=== PATIENT | male | born 2000 | race Caucasian/White ===

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

== ENCOUNTER 2019-04-04 23:39 | Emergency (ER) | payer OTHER ==
[2019-04-05] MEDS ORDERED: Bupivacaine 0.5% PF 10 ML SDV VIAL INJ ONE (00:09)
[2019-04-05] MEDS ORDERED: Bupivacaine 0.5%* 50 ML MDV VIAL INJ ONE (00:09)
[2019-04-05] MEDS ORDERED: Lidocaine 1% INJ* 10 MG/ML 30 ML SDV INJ ONE (00:10)
--- NOTE | 2019-04-05 00:11 | ED ---
Throat Pain/Nasal Congestion - HPI Summary HPI Summary: 18-year-old male with no significant past medical history presents to the emergency department with chief complaint of a dental abscess of the upper left gums. Patient states he began having this abscess approximately one week ago and prior to arrival he "popped a knife and it and drained that fucker". Patient currently endorses 7/10 aching/pressure which is made worse with eating. Patient denies trouble breathing, trouble swallowing, fever, rash. Family history and social history noncontributory. Patient endorses smoking marijuana prior to arrival. Patient states he has a dentist appointment tomorrow but could not wait because of the pain. - History of Current Complaint Chief Complaint: EDDentalPain Time Seen by Provider: 04/05/19 00:03 Hx Obtained From: Patient Onset/Duration: Gradual Onset Severity: Severe Associated Signs And Symptoms: Negative: Dysphagia, FB Sensation, Drooling, Wheezing, Hoarseness, Sinus Discomfort, Nasal Discharge Cough: None - Allergies/Home Medications Allergies/Adverse Reactions: Allergies Allergy/AdvReac Type Severity Reaction Status Date / Time No Known Allergies Allergy Verified 03/09/14 16:14 PMH/Surg Hx/FS Hx/Imm Hx Endocrine/Hematology History: Denies: Hx Diabetes Cardiovascular History: Denies: Hx Coronary Artery Disease Sensory History: Reports: Hx Contacts or Glasses Denies: Hx Eye Injury, Hx Eye Prosthesis, Hx Glaucoma, Hx Legally Blind, Hx Macular Degeneration, Hx Vision Problem, Hx Deafness, Hx Hearing Aid, Hx Hearing Problem, Other Sensory Impairments Opthamlomology History: Reports: Hx Contacts or Glasses Denies: Hx Eye Injury, Hx Eye Prosthesis, Hx Glaucoma, Hx Legally Blind, Hx Macular Degeneration, Hx Vision Problem, Other Sensory Impairments Neurological History: Reports: Hx Headaches Psychiatric History: Reports: Hx Anxiety, Hx Attention Deficit Hyperactivity Disorder, Hx Depression, Hx Inpatient Treatment, Hx Community Mental Health Tx, Hx Bipolar Disorder, Hx of Violent Episodes Against Others, Other Psychiatric Issues/Disorders - ODD Denies: Hx Eating Disorder, Hx Panic Disorder, Hx Post Traumatic Stress Disorder, Hx Schizophrenia, Hx Suicide Attempt, Hx Substance Abuse - Surgical History Surgery Procedure, Year, and Place: adenoids at age 7/6 Infectious Disease History: No Infectious Disease History: Denies: Traveled Outside the [place] in Last 30 Days - Family History Known Family History: Negative: Cardiac Disease - Social History Alcohol Use: None Hx Substance Use: No Substance Use Type: Reports: None Hx Tobacco Use: No Smoking Status (MU): Never Smoked Tobacco Have You Smoked in the Last Year: No Review of Systems Constitutional: Negative Eyes: Negative Positive: Dental Pain. Negative: Epistaxis, Sore Throat, Ear Ache Cardiovascular: Negative Respiratory: Negative Gastrointestinal: Negative Genitourinary: Negative Musculoskeletal: Negative Skin: Negative Neurological: Negative Psychological: Normal All Other Systems Reviewed And Are Negative: Yes Physical Exam - Summary Physical Exam Summary: poor dentition throughout. No obvious abscesses appreciated in the mouth which may be drained. Posterior pharynx is within normal limits. No evidence of facial cellulitis. Triage Information Reviewed: Yes Vital Signs On Initial Exam: Initial Vitals Temp Pulse Resp BP Pulse Ox 98.2 F 102 15 127/72 97 04/04/19 23:43 04/04/19 23:43 04/04/19 23:43 04/04/19 23:43 04/04/19 23:43 Vital Signs Reviewed: Yes Appearance: Positive: Well-Appearing, No Pain Distress, Well-Nourished Skin: Positive: Warm, Skin Color Reflects Adequate Perfusion Eyes: Positive: EOMI, NIC ENT: Positive: Hearing grossly normal Dental: Positive: Gross Decay/Caries @, Abscess @ - LUQ Respiratory/Lung Sounds: Positive: Clear to Auscultation, Breath Sounds Present Cardiovascular: Positive: RRR, S1, S2 Abdomen Description: Positive: Nontender, Soft Bowel Sounds: Positive: Present Musculoskeletal: Positive: Strength/ROM Intact Neurological: Positive: Sensory/Motor Intact, Alert, Oriented to Person Place, Time, Speech Normal Psychiatric: Positive: Normal AVPU Assessment: Alert Procedures - Sedation Patient Received Moderate/Deep Sedation with Procedure: No Diagnostics - Vital Signs Vital Signs Temp Pulse Resp BP Pulse Ox 04/04/19 23:43 98.2 F 102 15 127/72 97 - Laboratory Lab Statement: Any lab studies that have been ordered have been reviewed, and results considered in the medical decision making process. EENT Course/Dx - Course Course Of Treatment: No dental abscess or lesions seen over area of concern. Erythema at the site of pain. No drainage from area. Several dental caries, cavities, crowding and broken teeth throughout. Pain on palpation over mandible. No TMJ tenderness. No pain with opening and closing mouth. Poor dental hygiene and outpatient dental care. Will treat for possible dental infection/abscess based on symptoms of pain and radiation to jaw and ear. No allergies. Will treat with clindamycin and dental block with 4ml .5% bupivacaine and 1 mL 1% lidocaine without epinephrine. Prior to dental block upon entering the room patient was found kissing his visitor. Patient to follow up immediately with dentist tomorrow. - Differential Diagnoses Differential Diagnoses: Dental Abscess, Dental Caries, Periodontic Abscess, Periodontic Disease, Peritonsillar Ulcer - Diagnoses Provider Diagnoses: Dental abscess Discharge ED - Sign-Out/Discharge Documenting (check all that apply): Patient Departure - Discharge Plan Condition: Stable Disposition: HOME Patient Education Materials: Dental Abscess (ED) Referrals: No Primary Care Phys,NOPCP [Primary Care Provider] - Additional Instructions: * You have been diagnosed with dental pain with possible infection: * Antibiotics as prescribed to you. * To minimize the potential for gastrointestinal intolerance, antibiotic should be taken at the start of a meal. If you have any questions about your medication , please contact us or ask your pharmacist. * Salt water rinses several times per day will improve healing time. * Ibuprofen 600mg three times daily with meals for discomfort. * Tylenol 650mg three times daily for pain * Use these medications intermittently * Follow up with a dentist for routine care to prevent recurrence of infections. * If fever, worsening pain or swelling develops, see your PCP, dentist or come back to the Emergency Department. - Billing Disposition and Condition Condition: STABLE Disposition: Home
[2019-04-05] MEDS ORDERED: Clindamycin CAP* 150 MG PO ONE (00:19)
[2019-04-05 01:38] VITALS: BP 128/74
== END 2019-04-05 01:37 | disposition home or self-care (01) ==
LOC: ED 23:39
DX: K04.7 Periapical abscess without sinus (principal); F41.9 Anxiety disorder, unspecified; F90.9 Attention-deficit hyperactivity disorder, unspecified type; F31.9 Bipolar disorder, unspecified
CPT/HCPCS: 99282; A9270-GY; J3490

== ENCOUNTER 2023-03-26 22:20 | Inpatient (IN) ==
[2023-03-26] MEDS ORDERED: Clindamycin 600 MG/D5W BAG 600 MG/50 ML BAG IV ONE (23:37)
[2023-03-26] MEDS ORDERED: Vancomycin 1,000 MG in NS 0.9% 250 ml 250 ML IVPB ONE (23:57)
[2023-03-26] MEDS ORDERED: Piperacillin/Tazobac 3.375 BAG 3.375 GM/100 ML BAG IV ONE (23:59)
[2023-03-27 00:15] LABS: ABS Basophils 0.1 10^3/uL (0.0-0.1); ABS Eosinophils 0.1 10^3/uL (0.0-0.5); ABS Lymphocytes 1.9 10^3/uL (1.0-4.8); ABS Monocytes 1.4 10^3/uL (0.0-1.1); ABS Neutrophils 11.7 10^3/uL (1.5-7.6); ABS Nucleated RBC 0.01 10^3/ul; Eosinophil % 0.8 %; Hematocrit 44.9 % (38-53); Hemoglobin 15.5 g/dL (13.2-16.3); Lymphocyte % 12.6 %; Mean Corpuscular Hgb Conc 34.5 g/dL (31-36); Mean Platelet Volume 7.1 fL (7.5-11.2); Nucleated Red Blood Cells % 0.1 %/100WBC (0.0-0.8); Platelet Count 335 10^3/uL (150-450); Red Blood Count 5.16 10^6/uL (4.06-5.63); White Blood Count 15.1 10^3/uL (3.6-10.2)
[2023-03-27 01:31] LABS: Albumin 4.8 g/dL (3.2-5.2); Albumin/Globulin Ratio 1.5 (1-3); C Reactive Protein 127.15 mg/L (<8.01); Calcium 10.1 mg/dL (8.6-10.3); Creatinine, Serum 0.94 mg/dL (0.67-1.17); Globulin 3.3 g/dL (2-4); Potassium 3.7 mmol/L (3.5-5.0); Total Bilirubin 0.6 mg/dL (0.2-1.0); Total Protein 8.1 g/dL (6.4-8.9); eGFR CKD-EPI 116.8 (>60)
[2023-03-27 03:02] LABS: HIV 4th Generation Nonreactive (Nonreactive)
[2023-03-27 03:50] LABS: INR 1.24 (0.83-1.13)
[2023-03-27] MEDS ORDERED: Zosyn per Pharmacy NOTE FOLLOW UP SCH (05:00)
[2023-03-27] MEDS: ZOSYN 3.375 GM Q8H per EXTENDED INFUSION IV SCH ×3 (05:59→14:33)
[2023-03-27] MEDS ORDERED: Vancomycin per Pharmacy 1 EA NOTE FOLLOW UP PRN (06:49)
[2023-03-27] MEDS: Nicotine PATCH 14 MG/24 HR PATCH TRANSDERM SCH (09:54)
[2023-03-27] MEDS: Vancomycin 1,250 MG in NS 0.9% 250 ml 250 ML IVPB SCH ×2 (09:55→18:30)
[2023-03-27] MEDS ORDERED: Vancomycin 1,250 MG in NS 0.9% 250 ml 250 ML IVPB SCH ×2 (10:00→18:00)
[2023-03-27] MEDS: CMCS:Ketorolac 10 mg TAB (NF) PO PRN (14:10)
[2023-03-27] MEDS ORDERED: Bupivacaine 0.5% SDV PF 30ML VIAL ONE ×2 (17:06→20:24)
[2023-03-27] MEDS ORDERED: oxyCODONE/Acetamin 5/325 mg TAB PO PRN (20:30)
[2023-03-27] MEDS ORDERED: Morphine 4 MG/ML VIAL (1 ml) IV PRN (20:30)
[2023-03-27] MEDS ORDERED: Naloxone 0.4 mg VIAL 0.4 mg/ml 1 ml VIAL IV PRN (20:30)
[2023-03-27] MEDS ORDERED: HYDROcodone/ACETAMIN 5/325 mg TAB PO PRN (20:30)
[2023-03-27] MEDS ORDERED: fentaNYL 100 mcg/2 ml 50 MCG/ML VIAL ONE ×3 (20:59→22:31)
[2023-03-27] MEDS ORDERED: Lidocaine 2% PF 5 ML VIAL ONE (20:59)
[2023-03-27] MEDS ORDERED: Propofol 10 MG/ML 20 ML BTL ONE (20:59)
[2023-03-27] MEDS: fentaNYL 100 mcg/2 ml 50 MCG/ML VIAL IV PRN ×2 (22:38→22:53)
[2023-03-27] MEDS ORDERED: Ondansetron 4 mg VIAL 2 MG/ML 2 ml VIAL ONE (22:52)
[2023-03-28] MEDS: ZOSYN 3.375 GM Q8H per EXTENDED INFUSION IV SCH ×4 (00:08→21:29)
[2023-03-28] MEDS: CMCS:Ketorolac 10 mg TAB (NF) PO PRN (00:16)
[2023-03-28] MEDS: Lactated Ringers 1000 ml BAG 1,000 ML IV SCH ×4 (04:43→13:56)
[2023-03-28] MEDS: Vancomycin 1,250 MG in NS 0.9% 250 ml 250 ML IVPB SCH ×2 (04:48→14:11)
[2023-03-28] MEDS ORDERED: Vancomycin 1,250 MG in NS 0.9% 250 ml 250 ML IVPB SCH (05:00)
[2023-03-28 06:42] LABS: ABS Eosinophils 0.2 10^3/uL (0.0-0.5); ABS Lymphocytes 1.5 10^3/uL (1.0-4.8); ABS Monocytes 1.3 10^3/uL (0.0-1.1); ABS Nucleated RBC 0.01 10^3/ul; Hematocrit 41.2 % (38-53); Hemoglobin 13.9 g/dL (13.2-16.3); Lymphocyte % 12.5 %; Mean Corpuscular Hemoglobin 29.3 pg (27-33); Mean Corpuscular Hgb Conc 33.7 g/dL (31-36); Mean Platelet Volume 6.9 fL (7.5-11.2); Nucleated Red Blood Cells % 0.1 %/100WBC (0.0-0.8); Platelet Count 312 10^3/uL (150-450); Red Blood Count 4.74 10^6/uL (4.06-5.63); Red Cell Distribution Width 13.1 % (12-17); White Blood Count 12.1 10^3/uL (3.6-10.2)
[2023-03-28 07:00] LABS: Calcium 9.1 mg/dL (8.6-10.3); Creatinine, Serum 2.08 mg/dL (0.67-1.17); Magnesium 2.2 mg/dL (1.9-2.7); Potassium 3.7 mmol/L (3.5-5.0)
[2023-03-28] MEDS: Nicotine PATCH 14 MG/24 HR PATCH TRANSDERM SCH (08:50)
[2023-03-28] MEDS ORDERED: Vancomycin Trough Check NOTE FOLLOW UP ONE (11:30)
[2023-03-29] MEDS: Acetaminophen IV 1 GM/100ML 1,000 MG/100 ML BAG IV PRN (00:48)
[2023-03-29] MEDS: ZOSYN 3.375 GM Q8H per EXTENDED INFUSION IV SCH (05:23)
[2023-03-29] MEDS ORDERED: Vancomycin Random Level NOTE FOLLOW UP ONE (06:00)
[2023-03-29 07:32] LABS: ABS Eosinophils 0.3 10^3/uL (0.0-0.5); ABS Lymphocytes 1.8 10^3/uL (1.0-4.8); ABS Monocytes 1.3 10^3/uL (0.0-1.1); ABS Neutrophils 6.7 10^3/uL (1.5-7.6); ABS Nucleated RBC 0.01 10^3/ul; Eosinophil % 3.3 %; Hematocrit 39.2 % (38-53); Hemoglobin 13.5 g/dL (13.2-16.3); Lymphocyte % 17.7 %; Mean Corpuscular Hemoglobin 29.6 pg (27-33); Mean Corpuscular Hgb Conc 34.4 g/dL (31-36); Mean Corpuscular Volume 85.9 fL (80-97); Mean Platelet Volume 6.9 fL (7.5-11.2); Nucleated Red Blood Cells % 0.1 %/100WBC (0.0-0.8); Platelet Count 312 10^3/uL (150-450); Red Blood Count 4.57 10^6/uL (4.06-5.63); Red Cell Distribution Width 12.6 % (12-17); White Blood Count 10.1 10^3/uL (3.6-10.2)
[2023-03-29 07:44] LABS: C Reactive Protein 70.68 mg/L (<8.01); Calcium 8.6 mg/dL (8.6-10.3); Creatinine, Serum 2.34 mg/dL (0.67-1.17); Magnesium 2.3 mg/dL (1.9-2.7); Potassium 3.8 mmol/L (3.5-5.0); eGFR CKD-EPI 39.1 (>60)
[2023-03-29 07:49] LABS: Vancomycin Random 9.6 mcg/mL
[2023-03-29] MEDS: Nicotine PATCH 14 MG/24 HR PATCH TRANSDERM SCH (07:53)
[2023-03-29] MEDS ORDERED: Vancomycin per Pharmacy 1 EA NOTE FOLLOW UP SCH (10:00)
[2023-03-29 11:50] LABS: Urine Appearance Cloudy; Urine Bilirubin Negative (Negative); Urine Blood 1+ (Negative); Urine Color Straw; Urine Glucose Negative (Negative); Urine Ketones Negative (Negative); Urine Nitrite Negative (Negative); Urine Protein Negative (Negative); Urine Specific Gravity 1.009 (1.002-1.030); Urine Urobilinogen Negative (Negative)
[2023-03-29 11:54] LABS: Urine Bacteria Absent (Absent); Urine Red Blood Cell Trace(0-2/hpf) (Absent); Urine Squamous Epithelial Cell Present (Absent); Urine White Blood Cell Trace(0-5/hpf) (Absent)
[2023-03-29] MEDS: Vancomycin 1000 MG in NS 0.9% 250 ML IVPB SCH ×2 (13:47→23:55)
[2023-03-30] MEDS: Nicotine PATCH 14 MG/24 HR PATCH TRANSDERM SCH (01:19)
[2023-03-30 08:36] LABS: ABS Basophils 0.1 10^3/uL (0.0-0.1); ABS Eosinophils 0.3 10^3/uL (0.0-0.5); ABS Lymphocytes 1.7 10^3/uL (1.0-4.8); ABS Monocytes 1.4 10^3/uL (0.0-1.1); ABS Neutrophils 7.3 10^3/uL (1.5-7.6); ABS Nucleated RBC 0.01 10^3/ul; Eosinophil % 3.1 %; Hematocrit 43.4 % (38-53); Hemoglobin 14.8 g/dL (13.2-16.3); Mean Corpuscular Hemoglobin 29.6 pg (27-33); Mean Platelet Volume 6.8 fL (7.5-11.2); Nucleated Red Blood Cells % 0.1 %/100WBC (0.0-0.8); Platelet Count 359 10^3/uL (150-450); Red Blood Count 4.99 10^6/uL (4.06-5.63); Red Cell Distribution Width 12.5 % (12-17); White Blood Count 10.8 10^3/uL (3.6-10.2)
[2023-03-30 09:00] LABS: Calcium 9.4 mg/dL (8.6-10.3); Creatinine, Serum 2.1 mg/dL (0.67-1.17); Magnesium 2.2 mg/dL (1.9-2.7); Potassium 3.6 mmol/L (3.5-5.0); eGFR CKD-EPI 44.5 (>60)
[2023-03-30] MEDS: Vancomycin 1000 MG in NS 0.9% 250 ML IVPB SCH ×2 (12:28→23:47)
[2023-03-31] MEDS: Acetaminophen IV 1 GM/100ML 1,000 MG/100 ML BAG IV PRN (06:14)
[2023-03-31 07:15] LABS: Hematocrit 41.7 % (38-53); Hemoglobin 14.2 g/dL (13.2-16.3); Mean Corpuscular Hemoglobin 29.2 pg (27-33); Mean Corpuscular Hgb Conc 33.9 g/dL (31-36); Mean Corpuscular Volume 86.2 fL (80-97); Mean Platelet Volume 6.7 fL (7.5-11.2); Platelet Count 352 10^3/uL (150-450); Red Blood Count 4.84 10^6/uL (4.06-5.63); Red Cell Distribution Width 12.5 % (12-17); White Blood Count 15.1 10^3/uL (3.6-10.2)
[2023-03-31 07:28] LABS: Calcium 8.9 mg/dL (8.6-10.3); Creatinine, Serum 2.04 mg/dL (0.67-1.17); Potassium 3.6 mmol/L (3.5-5.0); eGFR CKD-EPI 46.1 (>60)
[2023-03-31] MEDS ORDERED: Lactated Ringers 1000 ml BAG 1,000 ML IV ONE (08:08)
[2023-03-31 08:26] LABS: C Reactive Protein 113.68 mg/L (<8.01)
[2023-03-31] MEDS: Nicotine PATCH 14 MG/24 HR PATCH TRANSDERM SCH (08:45)
[2023-03-31 10:42] LABS: ABS Basophils 0.3 10^3/uL (0.0-0.1); ABS Eosinophils 0.4 10^3/uL (0.0-0.5); ABS Lymphocytes 1.6 10^3/uL (1.0-4.8); ABS Monocytes 1.8 10^3/uL (0.0-1.1); ABS Neutrophils 10.9 10^3/uL (1.5-7.6); Eosinophil % 2.6 %; Lymphocyte % 10.7 %
[2023-03-31] MEDS ORDERED: Vancomycin Trough Check NOTE FOLLOW UP ONE (11:30)
[2023-03-31 12:24] LABS: Creatinine, Serum 2.06 mg/dL (0.67-1.17); eGFR CKD-EPI 45.6 (>60)
[2023-03-31] MEDS: Vancomycin 1000 MG in NS 0.9% 250 ML IVPB SCH (12:33)
[2023-03-31 14:15] LABS: Vancomycin Trough 15.6 mcg/mL
[2023-04-01] MEDS: Vancomycin 1000 MG in NS 0.9% 250 ML IVPB SCH (01:06)
[2023-04-01 05:17] LABS: ABS Basophils 0.1 10^3/uL (0.0-0.1); ABS Eosinophils 0.4 10^3/uL (0.0-0.5); ABS Lymphocytes 1.6 10^3/uL (1.0-4.8); ABS Monocytes 1.4 10^3/uL (0.0-1.1); ABS Neutrophils 8.3 10^3/uL (1.5-7.6); Eosinophil % 3.7 %; Hemoglobin 13.5 g/dL (13.2-16.3); Lymphocyte % 13.9 %; Mean Corpuscular Hemoglobin 29.9 pg (27-33); Mean Corpuscular Hgb Conc 34.7 g/dL (31-36); Mean Corpuscular Volume 86.2 fL (80-97); Mean Platelet Volume 6.8 fL (7.5-11.2); Platelet Count 353 10^3/uL (150-450); Red Blood Count 4.52 10^6/uL (4.06-5.63); Red Cell Distribution Width 12.4 % (12-17); White Blood Count 11.8 10^3/uL (3.6-10.2)
[2023-04-01 05:56] LABS: Calcium 8.9 mg/dL (8.6-10.3); Creatinine, Serum 2.1 mg/dL (0.67-1.17); Magnesium 2.2 mg/dL (1.9-2.7); Phosphorus 3.9 mg/dL (2.5-5.0); Potassium 3.5 mmol/L (3.5-5.0); eGFR CKD-EPI 44.5 (>60)
[2023-04-01 06:34] LABS: C Reactive Protein 138.33 mg/L (<8.01)
[2023-04-01] MEDS ORDERED: Lactated Ringers 1000 ml BAG 1,000 ML IV ONE (06:54)
[2023-04-01] MEDS: Nicotine PATCH 14 MG/24 HR PATCH TRANSDERM SCH (10:48)
[2023-04-01 11:04] VITALS: BP 134/71
== END 2023-04-01 12:45 | disposition home or self-care (01) | DRG 364 ==
LOC: ED 22:20 → SUATTDRO 03-27 02:42 → EDHOLD 03-27 02:42 → SSU 03-27 11:39
PROVIDERS: ADMIT Internal Medicine; ATTEND Internal Medicine